=== PATIENT | male | born 1995 | race Caucasian/White ===

== ENCOUNTER 2025-03-18 14:13 | Emergency (ER) | payer SELFPAY ==
[2025-03-18] MEDS ORDERED: LIDOCAINE 1% 20 ML MDV ONE (15:43)
--- NOTE | 2025-03-18 16:11 | ER ---
Nurse's Notes [facility] Name: Bro Max Age: 29 yrs Sex: Male : 1995 Arrival Date: 03/18/2025 Time: 14:13 Bed 6 Private MD: Diagnosis: Cutaneous abscess of buttock Presentation: 03/18 14:48 Chief complaint: Patient states: staying at [facility] and they sent him for a boil me1 on his left buttock. Red, warm, painful area noted to left gluteal cleft. Pain 8/10. Denies fever/chills. Coronavirus screen: Vaccine status: Patient reports being unvaccinated. Ebola Screen: No symptoms or risks identified at this time. Initial Sepsis Screen: Does the patient meet any 2 criteria? HR > 90 bpm. Does the patient have a suspected source of infection? No. Patient's initial sepsis screen is negative. Risk Assessment: Do you want to hurt yourself or someone else? Patient reports no desire to harm self or others. Onset of symptoms was March 14, 2025. 14:48 Method Of Arrival: Ambulatory me1 14:48 Acuity: ADDI 4 me1 Historical: - Allergies: 14:50 No Known Allergies; me1 - Home Meds: 14:50 None [Active]; me1 - PMHx: 14:50 substance abuse; me1 - PSHx: 14:50 None; me1 - Immunization history:: Adult Immunizations up to date. - Infectious Disease History:: Denies. - Social history:: Smoking status: Patient reports the use of cigarette tobacco products, smokes one-half pack cigarettes per day. Screenin:57 [facility] ED Fall Risk Assessment (Adult) History of falling in the last 3 months, db including since admission No falls in past 3 months (0 pts) Confusion or Disorientation No (0 pts) Intoxicated or Sedated No (0 pts) Impaired Gait No (0 pts) Mobility Assist Device Used No (0 pt) Altered Elimination No (0 pt) Score/Fall Risk Level 0 - 2 = Low Risk Oriented to surroundings, Maintained a safe environment. Abuse screen: Denies threats or abuse. Denies injuries from another. Nutritional screening: No deficits noted. Tuberculosis screening: No symptoms or risk factors identified. Assessment: 14:56 Reassessment: Patient appears in no apparent distress at this time. Patient and/or db family updated on plan of care and expected duration. Pain level reassessed. Patient is alert, oriented x 3, equal unlabored respirations, skin warm/dry/pink. General: Appears in no apparent distress. comfortable, Behavior is calm, cooperative. Pain: Complains of pain in buttocks. Neuro: Level of Consciousness is awake, alert, obeys commands, Oriented to person, place, time, situation. Respiratory: Airway is patent Respiratory effort is even, unlabored, Respiratory pattern is regular, symmetrical. Derm: Abscess located on buttocks. 15:38 Derm: Abscess located on left gluteus sanchez is nickel sized, has no drainage, is red, ph is raised. Vital Signs: 14:48 BP 157 / 79; Pulse 109; Resp 19; Temp 98.5; Pulse Ox 97% ; Weight 81.65 kg; Height 5 me1 ft. 10 in. ; Pain 8/10; 16:33 BP 138 / 78; Pulse 91; Resp 18; Temp 98; Pulse Ox 99% on R/A; ph 14:48 Body Mass Index 25.83 (81.65 kg, 177.8 cm) me1 14:48 Pain Scale: Adult ri1 ED Course: 14:17 Patient arrived in ED. al6 14:22 Ac Lujan NP is PHCP. pm1 14:22 Yulissa Gardner MD is Attending Physician. pm1 14:50 Triage completed. me1 14:50 Arm band placed on Patient placed in an exam room. me1 14:56 Kacey Butts, RN is Primary Nurse. db 15:38 Served as a pediatric registered nurse during rectal exam. ph 15:39 Patient has correct armband on for positive identification. Placed in gown. Bed in low ph position. Call light in reach. Side rails up X 1. Pulse ox on. NIBP on. Door closed. Noise minimized. Warm blanket given. 16:19 Assist provider with I \T\ D: of an abscess on left buttock Set up I\T\D tray. Performed by faviola Gardner MD Wound packed. iodoform gauze, Dressing with 4X4s, tape Patient tolerated well. Patient did not have IV access during this emergency room visit. Administered Medications: 15:50 Drug: Lidocaine Infiltration (1 %) 10 ml 20 ml Infiltration once; to bedside Volume: 20 ph ml; Route: Infiltration; 16:32 Follow up: Response: No adverse reaction ph 16:32 CANCELLED (Other Intervention Used): tetanus-diphtheria toxoidadult 0.5 ml IM once; ph Provide Vaccine Information Statement (VIS). 16:32 Drug: Trimethoprim-Sulfamethoxazole PO (160 mg-800 mg (DS) 1 tablet PO once Route: PO; ph 16:32 Follow up: Response: No adverse reaction ph 16:32 Drug: Cephalexin PO 500 mg PO once Route: PO; ph 16:32 Follow up: Response: No adverse reaction ph 16:32 Drug: Boostrix Tdap IM 0.5 ml IM once; as a single dose Route: IM; Site: left vastus ph lateralis; 16:32 Follow up: Response: No adverse reaction ph Medication: 16:20 Vaccine Information Statement (VIS) provided today. Questions and/or concerns ph addressed. VIS edition date: March 2021. Outcome: 16:11 Discharge ordered by . pm1 16:33 Discharged to home ambulatory, ph 16:33 Condition: good 16:33 Discharge instructions given to patient, Instructed on discharge instructions, follow up and referral plans. medication usage, wound care, Demonstrated understanding of instructions, follow-up care, medications, wound care, Prescriptions given X 2, 16:33 Patient left the ED. ph Signatures: Kiah Purcell, RN RN Ac Lujan, [employer] pm1 Kacey Butts RN RN Alma Rosa Wilkins RN RN ri1 Claudia Watkins6
--- NOTE | 2025-03-18 16:11 | EDPHYS ---
Physician Documentation [facility] Name: Bro Max Age: 29 yrs Sex: Male : 1995 Arrival Date: 03/18/2025 Time: 14:13 Bed 6 Private MD: ED Physician Yulissa Gardner HPI: 03/18 16:00 This 29 yrs old Male presents to ER via Ambulatory with complaints of Abscess. pm1 16:00 The patient presents with an abscess of the buttocks. Description: raised. Onset: The pm1 symptoms/episode began/occurred 4 day(s) ago. Possible cause(s): unknown. Associated signs and symptoms: Pertinent positives: pain with sitting on left buttocks, Pertinent negatives: drainage, fever, No pain present with bowel movement. Modifying factors: the symptoms are alleviated by nothing, the symptoms are aggravated by sitting. Severity of symptoms: in the emergency department the symptoms have resolved. The patient has not experienced similar symptoms in the past. The patient has not recently seen a physician. [facility] Was sent for evaluation and treatment of abscess to buttocks that he started to complain about when he was sitting down. No rectal or perianal pain. No rectal pain with bowel movement. Patient denies history of IV drug use. . Historical: - Allergies: 14:50 No Known Allergies; me1 - Home Meds: 14:50 None [Active]; me1 - PMHx: 14:50 substance abuse; me1 - PSHx: 14:50 None; me1 - Immunization history:: Adult Immunizations up to date. - Infectious Disease History:: Denies. - Social history:: Smoking status: Patient reports the use of cigarette tobacco products, smokes one-half pack cigarettes per day. ROS: 16:00 Constitutional: Negative for fever, chills, and weight loss, pm1 16:00 Back: Negative for injury and pain, MS/Extremity: Negative for injury and deformity, 16:00 Abdomen/GI: Negative for abdominal pain, nausea, vomiting, and diarrhea, 16:00 Skin: Positive for abscess, of the left gluteus sanchez, 16:00 All other systems are negative, Exam: 16:00 Constitutional: This is a well developed, well nourished patient who is awake, alert, pm1 and in no acute distress. Head/Face: Normocephalic, atraumatic. 16:00 Cardiovascular: Exam negative for 16:00 Respiratory: Exam negative for acute changes, respiratory distress, 16:00 Skin: Appearance: normal except for affected area, abscess, that is small, approximately 3 cm(s), of the left gluteus sanchez, minimal drainage, no obvious fluctuance, No surrounding cellulitis, Vital Signs: 14:48 BP 157 / 79; Pulse 109; Resp 19; Temp 98.5; Pulse Ox 97% ; Weight 81.65 kg; Height 5 me1 ft. 10 in. ; Pain 8/10; 16:33 BP 138 / 78; Pulse 91; Resp 18; Temp 98; Pulse Ox 99% on R/A; ph 14:48 Body Mass Index 25.83 (81.65 kg, 177.8 cm) oh1 14:48 Pain Scale: [place] [facility] [place]: 16:08 I \T\ D: Incision and drainage was performed for an abscess of the left left gluteus pm1 sanchez Prepped with Betadine, Anesthetized with 5 ml's 1% Lidocaine. Incised with #11 blade. Drained small amount purulent fluid. Loculations removed. Abscess cavity explored. Packed with iodoform gauze, Dressing: sterile 4x4 gauze, the patient tolerated the procedure well, PJ RN present for procedure. MDM: 15:02 Medical Screening Exam initiated pm1 16:08 Data reviewed: vital signs. pm1 16:08 Counseling: I had a detailed discussion with the patient and/or guardian regarding the pm1 historical points, exam findings, and any diagnostic results supporting the discharge/admit diagnosis, the need for outpatient follow up, a family practitioner, a general surgeon, to return to the emergency department if symptoms worsen or persist or if there are any questions or concerns that arise at home. Administered Medications: 15:50 Drug: Lidocaine Infiltration (1 %) 10 ml 20 ml Infiltration once; to bedside Volume: 20 ph ml; Route: Infiltration; 16:32 Follow up: Response: No adverse reaction ph 16:32 CANCELLED (Other Intervention Used): tetanus-diphtheria toxoidadult 0.5 ml IM once; ph Provide Vaccine Information Statement (VIS). 16:32 Drug: Trimethoprim-Sulfamethoxazole PO (160 mg-800 mg (DS) 1 tablet PO once Route: PO; ph 16:32 Follow up: Response: No adverse reaction ph 16:32 Drug: Cephalexin PO 500 mg PO once Route: PO; ph 16:32 Follow up: Response: No adverse reaction ph 16:32 Drug: Boostrix Tdap IM 0.5 ml IM once; as a single dose Route: IM; Site: left vastus ph lateralis; 16:32 Follow up: Response: No adverse reaction ph Disposition Summary: 03/18/25 16:11 Discharge Ordered Notes: Location: Home pm1 Problem: new pm1 Symptoms: have improved pm1 Condition: Stable pm1 Diagnosis - Cutaneous abscess of buttock pm1 Followup: pm1 - With: Emergency Department - When: As needed - Reason: Worsening of condition Followup: pm1 - With: Private Physician - When: 2 - 3 days - Reason: Recheck today's complaints, Continuance of care, Re-evaluation by your physician Discharge Instructions: - Discharge Summary Sheet pm1 - Skin Abscess pm1 - Incision and Drainage pm1 Forms: - Medication Reconciliation Form pm1 - Antibiotic Education pm1 - Prescription Opioid Use pm1 - Patient Portal Instructions pm1 - Leadership Thank You Letter pm1 Prescriptions: - Cephalexin 500 mg Oral Capsule - take 1 capsule ORAL route every 8 hours for 10 days; 30 capsule; Refills: 0, pm1 Product Selection Permitted - Bactrim DS 800-160 mg Oral Tablet - take 1 tablet ORAL route every 12 hours for 10 days; 20 tablet; Refills: 0, pm1 Product Selection Permitted Signatures: Kiah Purcell, CARLOS RN Ac Lujan, [employer] pm1 Alma Rosa Wilkins RN RN oh1 Corrections: (The following items were deleted from the chart) 16:32 16:12 Tetanus-Diphtheria Toxoid IM Adult 0.5 ml IM once; Provide Vaccine Information ph Statement (VIS). ordered. pm1
[2025-03-18] MEDS ORDERED: SMZ./TMP. 800/160 MG TABLET ONE (16:14)
[2025-03-18] MEDS ORDERED: TDAP (DIPHTH,PERTUSS(ACELL),TET VAC) 0.5 ML VIAL IMVAC ONE (16:14)
[2025-03-18] MEDS ORDERED: CEPHALEXIN 250 MG CAP ONE (16:14)
[2025-03-18 16:42] VITALS: BP 138/78; TEMP 98; O2SAT 99
== END 2025-03-18 16:33 | disposition home or self-care (01) ==
LOC: ER 14:13
PROC: 0H98XZZ Drainage of Buttock Skin, External Approach (ICD-10-PCS; principal; 2025-03-18)
DX: L02.31 Cutaneous abscess of buttock (principal); F17.210 Nicotine dependence, cigarettes, uncomplicated
CPT/HCPCS: 90715; 96372; 99284; J2003